=== PATIENT | female | born 1965 ===

== ENCOUNTER 2016-09-05 16:35 | Emergency (ER) | payer BC ==
--- NOTE | 2016-09-05 16:55 | UC ---
Skin Complaint HPI - HPI Summary HPI Summary: Tick bite on left upper arm attached for 12 hours and removed 24 hours ago--- some bruising at site - History of Current Complaint Chief Complaint: UCSkin Time Seen by Provider: 09/05/16 16:40 Stated Complaint: TICK BITE Hx Obtained From: Patient Hx Last Menstrual Period: UTERINE ABLASION ?: No Onset/Duration: Sudden Onset, Lasting Days - 1 Onset Severity: Mild Current Severity: None Pain Intensity: 0 Pain Scale Used: 0-10 Numeric Location: Discrete - left upper arm Aggravating: Nothing Alleviating: Nothing Associated Signs & Symptoms: Positive: Negative Related History: Insect Bite/Sting - Allergy/Home Medications Allergies/Adverse Reactions: Allergies Allergy/AdvReac Type Severity Reaction Status Date / Time No Known Allergies Allergy Verified 09/05/16 16:41 Home Medications: Home Medications NK [No Home Medications Reported] 09/05/16 [History Confirmed 09/05/16] Review of Systems Constitutional: Negative Skin: Bruising - at tick bite Eyes: Negative ENT: Negative Respiratory: Negative Cardiovascular: Negative Gastrointestinal: Negative Genitourinary: Negative Motor: Negative Neurovascular: Negative Musculoskeletal: Negative Neurological: Negative Psychological: Negative All Other Systems Reviewed And Are Negative: Yes PMH/Surg Hx/FS Hx/Imm Hx Previously Healthy: Yes - Surgical History Surgical History: None - Family History Known Family History: Positive: None Family History: no medical issues in family lineage - Social History Occupation: Employed Full-time Lives: With Family Alcohol Use: Occasionally Substance Use Type: None Smoking Status (MU): Former Smoker When Did the Patient Quit Smoking/Using Tobacco: 25 YEARS Physical Exam Triage Information Reviewed: Yes Appearance: Well-Appearing, No Pain Distress, Well-Nourished Vital Signs: Initial Vital Signs Temp 98.3 F 09/05/16 16:42 Pulse 63 09/05/16 16:42 Resp 16 09/05/16 16:42 BP 110/77 09/05/16 16:42 Pulse Ox 99 09/05/16 16:42 Vital Signs Reviewed: Yes Eye Exam: Normal Eyes: Positive: Conjunctiva Clear ENT Exam: Normal ENT: Positive: Normal ENT inspection, Hearing grossly normal. Negative: Nasal congestion, Trismus, Muffled/hoarse voice Dental Exam: Normal Neck exam: Normal Neck: Positive: Supple, Nontender Respiratory Exam: Normal Respiratory: Positive: Chest non-tender, No respiratory distress, No accessory muscle use Cardiovascular Exam: Normal Cardiovascular: Positive: RRR, Pulses Normal, Brisk Capillary Refill Musculoskeletal Exam: Normal Musculoskeletal: Positive: Strength Intact, ROM Intact, No Edema Neurological Exam: Normal Neurological: Positive: Alert, Muscle Tone Normal Psychological Exam: Normal Skin: Positive: Other - bruising at site of bite left upper anterior arm Course/Dx - Course Course Of Treatment: soap and water wash, observe for s/s of Lyme follow with pcp - Differential Diagnoses - Skin Complaint Differential Diagnoses: Cellulitis, Contact Dermatitis, Local Allergic Reaction , Tick Born Illness, Other - Diagnoses Provider Diagnoses: Tick Bite Discharge - Discharge Plan Condition: Stable Disposition: HOME Patient Education Materials: Tick Bite (ED) Referrals: Pedro MARIA,Luciano [Medical Doctor] - If Needed
== END 2016-09-05 17:01 | disposition home or self-care (01) ==
LOC: UCCORT 16:35
DX: S40.862A Insect bite (nonvenomous) of left upper arm, initial encounter (principal); W57.XXXA Bitten or stung by nonvenomous insect and other nonvenomous arthropods, initial encounter; Z87.891 Personal history of nicotine dependence
CPT/HCPCS: 99201; G0463